=== PATIENT | male | born 2000 | race Caucasian/White ===

== ENCOUNTER 2022-04-23 14:17 | Emergency (ER) | payer BC, SELFPAY ==
--- NOTE | 2022-04-23 14:19 | ED.EAR ---
HPI - Ear Problem General Chief complaint: Ear Stated complaint: ear pain/drainage Time Seen by Provider: 04/23/22 14:18 Source: patient Mode of arrival: ambulatory Limitations: no limitations History of Present Illness HPI Narrative: Mr. Amaro is a 21-year-old male patient presenting to clinic today with complaints of ear pain and drainage x1 week. States ear feels full and is a he is having difficulty hearing. He denies any fever chills Related Data Allergies Allergy/AdvReac Type Severity Reaction Status Date / Time amoxicillin Allergy Unknown Verified 04/23/22 14:24 Review of Systems Review of Systems: Pertinent positives per HPI. Patient denies any fever, chills, rash, headache, visual changes, dizziness, cough, runny nose, sore throat, shortness of breath, chest pain, palpitations, nausea, vomiting, diarrhea, constipation, abdominal pain, or any urinary issues. PMFSH Comments At the time of my signature, I reviewed and agree with the nursing past medical, surgical, social, and family history. There is no relevant family history pertinent to the patient complaint. Exam Narrative: General: Well-developed, well nourished, in no apparent distress Head: Normocephalic, atraumatic Eyes: Pupils equally round and reactive to light bilaterally, EOM intact, sclera and conjunctive clear, no discharge, lids normal Ears: Right TMs intact and clear, left TM intact, red, bulging, right ear canal clear, left ear canal impacted with cerumen, ear irrigation was performed, ear canal was red and swollen after irrigation was performed, no drainage, grossly hearing normal. Nose: Nares patent, no discharge, no inflammation, no sinus tenderness. Mouth: Oropharynx without lesions or masses, good dentition, MMM. Neck: Supple, trachea midline, no enlargement of anterior or posterior cervical nodes, no thyroid masses or goiter palpable. Cardio: Regular rate and rhythm, s1 and s2 normal, no murmur appreciated. Resp: Clear to auscultation bilaterally anteriorly and posteriorly, no rhonchi, rales, wheezing or rubs Course Course Emergency Course: Portions of this record may have been created with voice recognition software. Level of Care: Express Care Visit Vital Signs Vital signs: Vital Signs Temperature 36.6 C 04/23/22 14:27 Pulse Rate 71 04/23/22 14:27 Respiratory Rate 16 04/23/22 14:27 Blood Pressure 149/87 H 04/23/22 14:27 Pulse Oximetry 100 04/23/22 14:27 Temperature 36.6 C 04/23/22 14:27 Pulse Rate 71 04/23/22 14:27 Respiratory Rate 16 04/23/22 14:27 Blood Pressure 149/87 H 04/23/22 14:27 Pulse Oximetry 100 04/23/22 14:27 Vital signs reviewed Procedures Ear Wax Removal Left Ear: Ear Wax Removal Date: 04/23/22 Results: Re-examined: cerumen removed completely TM Examination: TM(s) erythematous (And bulging) Ear Canal Exam: other (Swollen and red) Patient Tolerated Procedure: well and no complications Complications: no problems Technique: ear canal irrigated and ear canal curetted Additional Comments: Verbal consent was obtained for left ear irrigation. Risk and benefits were explained to the patient he voiced understanding. Half warm water half peroxide was used to irrigate the left ear canal and was successful at removing the cerumen. A ear curette was used to remove ear wax from the external auditory canal. Patient tolerated procedure very well Medical Decision Making MDM Narrative Medical decision making narrative: At the time of visit patient is resting comfortably on the exam table. Irrigation was performed successfully in the clinic today. Has is left-sided otitis media with otitis externa. Will send a prescription for azithromycin as well as Ciprodex. Supportive measures were discussed with the patient he voiced understanding of discharge instructions and agrees to treatment plan. Differential Diagnosis Differential Diagnosis
[2022-04-23 14:27] VITALS: BP 149/87; PULSE 71; RESP 16; TEMP 36.6; O2SAT 100
== END 2022-04-23 14:47 | disposition home or self-care (01) ==
LOC: EXPGOSH 14:21
PROVIDERS: Emergency Provider Nurse Practitioner Family
DX: H66.92 Otitis media, unspecified, left ear (principal); H60.92 Unspecified otitis externa, left ear; H61.22 Impacted cerumen, left ear
CPT/HCPCS: 69210; 99213; G0463